=== PATIENT | female | born 1955 | race Caucasian/White ===

== ENCOUNTER → 2019-08-12 | Outpatient (CLI) | payer BC, OTHER ==
--- NOTE | 2019-08-12 16:09 | Diagnostic Imaging Report ---
PROCEDURE: X-RAY MODIFIED BARIUM SWALLOW COMPARISON: None. INDICATION: Aspiration Radiation Details: Fluoroscopy time: 1.1 minutes Cumulative dose: 9 mGy DISCUSSION: Fluoroscopic examination was performed in conjunction with speech pathology during swallowing a variety of thin and thick liquid consistencies. Provided images demonstrate laryngeal penetration but no aspiration. CONCLUSION: Modified barium swallow demonstrating laryngeal penetration but no aspiration. Please refer to the speech pathology report for further details. Signed by: Rick Kumar MD on 08/12/2019 4:06 PM
== END ==
LOC: DX 09:46
PROVIDERS: ATTEND Otolaryngology
DX: R13.13 Dysphagia, pharyngeal phase (principal); R05 Cough
CPT/HCPCS: 74230; 87635

== ENCOUNTER → 2019-10-02 | Day surgery (SDC) | payer BC, OTHER ==
[~2019-10-02] MED LIST: ATORVASTATIN CA20 MG PO; CYMBALTA30 MG PO; FAMOTIDINE20 MG PO; LIDOCAINE HCL 2% LOCAL INJ 5 ML SDV VIAL INJ ONE; MIDAZOLAM HCL 2 MG/2 ML VIAL ONE; OMEPRAZOLE40 MG PO; PROPOFOL IV EMULSION 10 MG/ML 20 ML VIAL ONE; TRAZODONE HCL50 MG PO; WELLBUTRIN SR150 MG PO
[2019-10-02 10:55] VITALS: BP 132/91
--- NOTE | 2019-10-02 16:16 | Operative Report ---
DATE OF PROCEDURE: 10/02/2019 SURGEON: Ze Lyman MD PROCEDURE PERFORMED: Esophagogastroduodenoscopy. PREOPERATIVE DIAGNOSES: Abdominal pain and gastroesophageal reflux disease POSTOPERATIVE DIAGNOSES: Bile reflux gastritis, hiatal hernia, reflux esophagitis. PREOPERATIVE MEDICATIONS: Consisted of general anesthesia. DESCRIPTION OF PROCEDURE: Using an [employer] video gastroscope, it was inserted in the patient's oropharynx and advanced to hypopharynx and down to the esophagus. The mucosa present in the esophagus was normal. Right above the GE junction at 38 cm was a mild irritation. Biopsies were obtained. This reflected reflux esophagitis. The stomach was entered and insufflated with air. The mucosa present in the cardia, fundus, and body of the antrum was viewed. There was evidence of bile sitting in the stomach and bile reflux gastritis noted after resection of bile out. No ulcerations were seen. The motility was normal. Biopsies were obtained in the antrum, body and fundus looking for H. Pylori. The endoscope was inserted, it passed the pylorus into the duodenal bulb and postbulbar duodenum. All this was found to be normal. The endoscope was drawn back up into the stomach, retroflexed viewing GE junction from below, again the hiatal hernia was seen. The scope was then inserted back into the body of the stomach and the scope was then slowly withdrawn back up into the esophagus, hypopharynx, oropharynx, and out of the patient's mouth and the procedure was ended. In completion, we had findings of a bile reflux gastritis, hiatal hernia and reflux esophagitis. Ze Lyman MD SAF/MODL /[id number]
== END | disposition home or self-care (01) ==
LOC: ENDO 11:00
PROVIDERS: ATTEND Internal Medicine Gastroenterology
DX: K21.0 Gastro-esophageal reflux disease with esophagitis (principal); K29.60 Other gastritis without bleeding; K31.89 Other diseases of stomach and duodenum; K44.9 Diaphragmatic hernia without obstruction or gangrene; I10 Essential (primary) hypertension; E78.5 Hyperlipidemia, unspecified; R05 Cough; Z88.6 Allergy status to analgesic agent; Z01.810 Encounter for preprocedural cardiovascular examination; Z01.812 Encounter for preprocedural laboratory examination; Z11.59 Encounter for screening for other viral diseases; Z68.31 Body mass index [BMI] 31.0-31.9, adult; Z87.891 Personal history of nicotine dependence
CPT/HCPCS: 43239; 93005; J2001; J2250; U0002

== ENCOUNTER → 2024-02-01 | Outpatient (REF) | payer MEDICARE, BC, OTHER ==
[~2024-02-01] MED LIST changes: -LIDOCAINE HCL 2% LOCAL INJ 5 ML SDV VIAL INJ ONE; -MIDAZOLAM HCL 2 MG/2 ML VIAL ONE; -PROPOFOL IV EMULSION 10 MG/ML 20 ML VIAL ONE
== END ==
LOC: DX 08:29
PROVIDERS: ATTEND Internal Medicine Gastroenterology
DX: K56.609 Unspecified intestinal obstruction, unspecified as to partial versus complete obstruction (principal)
CPT/HCPCS: 74280